=== PATIENT | female | born 1955 | race Caucasian/White ===

== ENCOUNTER 2020-08-19 10:02 | Outpatient (REF) | payer MEDICARE, SELFPAY ==
--- NOTE | 2020-08-19 | PFT_ITS ---
FLOWS: FEV1 of 84% of predicted at 1.89 L. FVC 81% of predicted at 2.38 L. FEV1 to FVC ratio of 0.79. No bronchodilator response. LUNG VOLUMES: Total lung capacity 150% of predicted at 7.17 L. Residual volume predicted at 4.61 L. Slow vital capacity 92% of predicted at 2.55 L. Expiratory reserve volume 17% of predicted at 0.12 L. Diffusion capacity is normal. In comparison to pulmonary function test performed in May of 2016, FVC has increased by 0.52 L; FEV1 has increased by 0.35 L; total lung capacity has increased by 2.88 L; residual volume has increased by 2.39 L; slow vital capacity has increased by 0.24 L; expiratory reserve volume has been without significant changes; diffusion capacity has decreased by 1.06 mL/minute per mmHg. IMPRESSION: No obstructive or restrictive ventilatory defect. No bronchodilator response. Increased total lung capacity suggests hyperinflation. Increased residual volume suggests air trapping. Decreased expiratory reserve volume suggests extrathoracic restriction likely secondary to abdominal obesity. MD DEANNE Mane/MODL / [id number]
--- NOTE | 2020-08-19 11:20 | XR_ITS ---
EXAMINATION: XR CHEST CLINICAL INFORMATION: Dyspnea on exertion. COMPARISON: None TECHNIQUE: 2 views of the chest were obtained. FINDINGS: The lungs are expanded with slight increase bilateral vascular markings. No acute consolidation or pleural effusion seen. The heart size and pulmonary vascularity is normal. No gross bony abnormality. XR/XR chest 2V IMPRESSION: Increased pulmonary vascularity suspicious for early vascular congestion.
== END 2020-08-19 10:03 | disposition home or self-care (01) ==
LOC: HO.RESP 10:02
PROVIDERS: PCP Internal Medicine; Visit Provider Internal Medicine
DX: Z01.818 Encounter for other preprocedural examination (principal); J44.9 Chronic obstructive pulmonary disease, unspecified; R06.00 Dyspnea, unspecified
CPT/HCPCS: 71046; 94060; 94727; 94729

== ENCOUNTER → 2020-09-01 14:03 | Outpatient (REF) | payer MEDICARE, SELFPAY ==
--- NOTE | 2020-09-01 14:00 | CA_ITS ---
Transthoracic Echocardiogram Patient (Last, First, Middle): Irasema Shook A Gender: Female Date of : 1955 Age: 65 Procedure Date: 09/01/2020 Procedure Type: Transthoracic Echocardiogram Location: OP Height: 157.48 cm Weight: 133.81 kg BSA: 2.25 m2 Heart Rate: bpm BP: 145 / 80 mmHg Editorial Cartoonist: Referring MD: Donald Licea MD Symptoms: DYSPNEA ON EXERTION R06.00 Study Quality: Fair ECG Rhythm: Sinus Conclusions: - The left ventricular systolic function is normal. The visually estimated ejection fraction is between 65-70%. - There is mild calcification of the aortic valve. - No obvious valvular pathology seen on this study. Findings Procedure Information Contrast agent, definity, is being given per protocol without apparent complications. Left Ventricle Normal left ventricular cavity size. There is normal left ventricular wall thickness. The left ventricular systolic function is normal. The visually estimated ejection fraction is between 65-70%. There is no evidence of regional wall motion abnormalities. Diastolic function is normal for age. Right Ventricle Normal right ventricular cavity size and systolic function. Atria The left atrium is normal in size. The right atrium is normal in size. Aortic Valve There is a normal trileaflet aortic valve. There is mild calcification of the aortic valve. There is no aortic valve stenosis. There is no aortic valve regurgitation. Mitral Valve The mitral valve appears normal. There is trace mitral valve regurgitation. There is no mitral valve stenosis. Pulmonic Valve The pulmonic valve was not well visualized. Tricuspid Valve Normal tricuspid valve structure. There is trace tricuspid valve regurgitation. The pulmonary artery systolic pressure is normal. Great Vessels The aortic annulus, sinuses of valsalva, and asc aorta are normal in size. Venous The inferior vena cava is normal in size and collapses greater than 50% with inspiration. Pericardium/Pleural There is no evidence of pericardial effusion. Prior Study Comparison No prior study available for comparison. Recommendations, Care & Conclusions No obvious valvular pathology seen on this study. Measurements 2D Linear Measurements RVIDd: 2.41 RVIDd Index: 1.07 IVSd: 1.07 0.6-0.9/0.6-1.0 cm LVIDd: 4.77 3.9-5.3/4.2-5.9 cm LVIDd Index: 2.12 2.4-3.2/2.2-3.1 cm/m2 LVIDs: 3.33 2.0-3.6 cm LVPWd: 1.28 0.7-1.1 cm Ao Root: 2.80 2.1-3.5 cm LA Diam: 3.70 2.7-3.8/3.0-4.0 cm LAIDs Index: 1.64 1.5-2.3 cm/m2 LV Mass: 262.51 67-162/88-224 g LV Mass Index: 116.67 43-95/49-115 g/m2 LVOT Diam: 4.40 3.0+(-)1.3 cm 2D Systolic Function EF 4C: 81.20 >55% EF 2C: 68.90 >55% EF BiP: 75.90 >55% Mitral Valve MV Pk E: 0.80 MV PK A: 0.81 MV Decel Time: 109.00 E/A: 1.00 E'Lateral: 10.30 E'Medial: 7.18 E/E' Med: 11.20 E/E' Lat: 7.80 PHT: 32.00 MVA PHT: 6.88 Decel Sequoyah: 7.35 Aortic Valve AoV Pk Moises: 1.60 AoV Mn Moises: 1.15 AoV VTI: 0.23 AoV Pk Grad: 10.00 Aov Mn Grad: 6.00 ALECIA Cont.VTI: 17.73 LVOT LVOT Pk Moises: 1.49 LVOT Mn Moises: 1.02 LVOT VTI: 0.27 LVOT Pk Grad: 9.00 LVOT Mn Grad: 5.00 LVOT Diam: 4.40 LVOT Area: 15.20 Diastolic Function MV Pk E: 0.80 MV Pk A: 0.81 E/A: 1.00 E'Medial: 7.18 E/E' Med: 11.20 E' Laterial: 10.30 E/E' Lat: 7.80 Tricuspid Valve RA Press: 3.00 Great Vessels Aorta Ao Root-2D: 2.80 2.0-3.7 cm Ao Asc: 3.00 2.1-3.4 cm Updated in Other Vendor System with Status of Final Ezra Gao MD electronically signed on 09/04/2020 10:59:15 AM with status of Final
== END ==
LOC: HO.CARD 14:03
PROVIDERS: Visit Provider Internal Medicine
DX: Z01.810 Encounter for preprocedural cardiovascular examination (principal); R06.00 Dyspnea, unspecified
CPT/HCPCS: 93306; Q9957

== ENCOUNTER 2020-10-19 13:09 | Outpatient (REF) | payer MEDICARE, SELFPAY ==
--- NOTE | ~2020-10-19 | CT_ITS ---
EXAMINATION: CT CHEST WITHOUT CONTRAST CLINICAL INFORMATION: Interstitial lung disease. COMPARISON: Chest x-ray of 08/19/2020 and 11/13/2017. TECHNIQUE: Multidetector volumetric CT imaging of the chest was done. Axial MIP volume rendering provided. Sagittal and coronal reformatted images were obtained. This CT examination was performed using dose optimization techniques as appropriate, variously including the following: *Automated exposure control *Adjustment of mA and/or kV according to patient size (this includes techniques or standardized protocols for targeted exams where dose is matched to indication/reason for exam; i.e. extremities or head) *Use of iterative reconstruction technique DLP: 328 mGy-cm. FINDINGS: LUNGS: Central airways are patent. There is bronchial wall thickening seen within the right upper lobe, left upper lobe, and lingula. There is interstitial fibrosis noted in these locations with some reticulation and cystic formation. No significant disease is seen within the lower lobes. There are some bilateral sub-4 mm nodules present. There is some minor ground-glass disease seen within the region of the cystic change. No definite solid component is present. Discoid scarring is seen within the right middle lobe and lingula. No definite calcified lesion is identified. No significant air trapping on high-resolution expiratory images identified. MEDIASTINUM: Heart normal size. Coronary artery calcification present. No significant pericardial effusion. No thoracic aortic aneurysm. Nonocclusive calcified plaque seen within the aortic arch. There is anterior mediastinal triangular density present without convex margins, likely representing residual thymus that has not completely undergone fatty involution. No mediastinal or hilar lymphadenopathy. PLEURA: There is no pleural effusion. No pleural mass or thickening. AXILLA: No lymphadenopathy. UPPER ABDOMEN: Status post cholecystectomy. No adrenal gland mass. OSSEOUS STRUCTURES: No suspicious destructive bony lesions. CT/CT chest wo con IMPRESSION: Upper lobe predominant bronchial wall thickening with some degree of interstitial fibrosis with cystic formation without calcified nodules or calcified lymph nodes. Old granulomatous disease such as tuberculosis would seem less likely without calcified lymph nodes residual granuloma. Inferior mucociliary clearance such as cystic fibrosis can have this appearance but would be atypical in patient of this age. In healed gas is slightly smoker inhalation could have this appearance. Silicosis or pneumoconiosis of other etiologies have an upper lobe predominance; however, there are usually nodular densities present. Hypersensitivity pneumonitis could have this appearance. Chronic eosinophilic pneumonia would tend to have a more peripheral pattern. Pulmonary findings of ankylosing spondylitis could also have this appearance.
== END 2020-10-19 13:10 | disposition home or self-care (01) ==
LOC: HO.CT 13:09
PROVIDERS: PCP Internal Medicine; Visit Provider Internal Medicine
DX: J84.9 Interstitial pulmonary disease, unspecified (principal)
CPT/HCPCS: 71250

== ENCOUNTER 2022-12-05 06:36 | Day surgery (SDC) | payer MEDICARE, SELFPAY ==
[2022-12-05 06:54] VITALS: BMI 54.8
[2022-12-05 06:58] VITALS: BP 131/72; PULSE 94; RESP 20; TEMP 36.4; O2SAT 95
[2022-12-05] MEDS: Lactated Ringers 1,000 ML 50 ML IVCONT (07:25)
[2022-12-05] MEDS: Albuterol Sulfate (0.083%) 2.5 MG/3 ML VIAL.NEB INHALE (07:33)
[2022-12-05 07:34] VITALS: PULSE 86; RESP 17; O2SAT 96
--- NOTE | 2022-12-05 08:45 | HO.ANESPROP2 ---
[facility] Past Medical History Medical History (Updated 12/05/22 @ 06:49 by Jessica Hardy RN) Back pain Chronic hepatitis C COPD (chronic obstructive pulmonary disease) Emphysema lung Endometrial ca Fractured coccyx Gallstone HTN (hypertension) Rectal fissure Family History Family history of problems with anesthesia: No Surgical History Surgical History (Updated 12/04/22 @ 13:30 by Meg Kiser RN) H/O colonoscopy Hx of cholecystectomy S/P OTILIO (total abdominal hysterectomy) History of Problems with Anesthesia: No Social History Social History Patient Tobacco Use Status: Current everyday Tobacco user Tobacco use type: Cigarette Cigarette Packs Per Day: 1 Cigarettes Per Day: 20.0 Use of substances other than those prescribed or required for medical reasons: No Are you DNR?: No Advance Directives: No Advance Directives Information Provided: Yes Recently lost weight without trying: No Nutrition Risks: No Nutritional Risk Meds Allergies Allergy/AdvReac Type Severity Reaction Status Date / Time nabumetone [From RELAFEN] AdvReac Severe LETHARGY Verified 12/05/22 06:56 naproxen [From ANAPROX] AdvReac Severe GI PAIN Verified 12/05/22 06:56 venlafaxine [From EFFEXOR] AdvReac Severe LETHARGY Verified 12/05/22 06:56 Active Medications: Current Medications Lactated Ringer's (Lr) 1,000 mls @ 50 mls/hr IVCONT .Q20H CHELSEY Last Admin: 12/05/22 07:25 Dose: 50 mls/hr Sodium Biphosphate/Sodium Phosphate (Sodium Phosphate,Johnson-Dibasic 133 Ml Enema) 133 ml [place] ONCE PRN PRN Reason: Poor Colonoscopy Prep Results Home Medications Medication Instructions Recorded Confirmed Last Taken Type albuterol sulfate 90 mcg/actuation 2 puff inhalation Q4H PRN SOB 12/04/22 12/04/22 Unknown History aerosol inhaler cholestyramine (with sugar) 4 gram ea PO QD-BID 12/04/22 Unknown History oral powder fentanyl 12 mcg/hr transdermal 1 patch topical Q3D 12/04/22 12/04/22 12/03/22 History patch ketoconazole 2 % topical cream appl topical DAILY 12/04/22 Unknown History lisinopril 10 1 tab PO DAILY 12/04/22 12/04/22 12/05/22 History mg-hydrochlorothiazide 12.5 mg tablet oxycodone 15 mg tablet 15 mg PO Q4H PRN pain 12/04/22 12/04/22 12/05/22 History Exam Exam Date and Time: December 05, 2022 0845 Height,Weight and Vital Signs: Height 5 ft 1 in Weight 131.542 kg Last Vital Signs Temp 97.6 F 12/05/22 06:58 Pulse 86 12/05/22 07:34 Resp 17 12/05/22 07:34 BP 131/72 12/05/22 06:58 Pulse Ox 95 12/05/22 06:58 O2 Del Method Room Air 12/05/22 06:58 Airway Mallampati Class: II TM Dist: >3cm Neck ROM: Full Denture: Upper Partial: Lower Heart: rr Lungs: cta Assessment and Plan Assessment Anesthesia Assessment: Anesthesia Plan Discussed and Chart Reviewed Final Anesthetic Review Family History of Problems with Anesthesia: No History of Problems with Anesthesia: No NPO: Yes ASA Class: III Final Preanesthetic Review: No Changes in Pt Med Stat, Meds/Allgs Chart Reviewed and Consent Obtained/Reviewed Patient Risk: Intermediate Procedure Risk: Low Anesthetic Plan Anesthetic Plan: MAC: Disposition: Standard PACU
[2022-12-05 08:54] VITALS: BP 103/61; PULSE 80; RESP 18; TEMP 36.5; O2SAT 94
--- NOTE | 2022-12-05 08:55 | PM.OP ---
Brief Operative Note Date of Service: 12/05/22 Pre-op diagnosis: Screening Post-op diagnosis: other (Colon polyps) Procedure: Colonoscopy to the cecum with biopsies, bx/removal of polyp, hot snare polypectomies, and placement of Resolution clips x 4 Surgeon: Chris Watson Anesthesia: MAC Was an Flaking Roll Operator used for this Procedure?: No Estimated blood loss (mL): 2.0 Pathology: other (A. Polyps at 50cm B. Ascending colon C. Cecal polyp D. Ascending colon polyps E. Transverse colon polyps F. Descending colon) Condition: stable Disposition: PACU
[2022-12-05 09:16] VITALS: BP 130/71; PULSE 78; RESP 16; TEMP 36.1; O2SAT 96
--- NOTE | 2022-12-05 17:45 | OP_ITS ---
DATE OF SERVICE: 12/05/2022 SURGEON: Chris Watson MD INDICATIONS: The patient presents for evaluation of colorectal cancer screening and personal history of tubular adenomas of the colon. Full consent has been obtained from her for this, including risks of bleeding and perforation. PREOPERATIVE DIAGNOSIS: POSTOPERATIVE DIAGNOSIS: PROCEDURE PERFORMED: Colonoscopy to the cecum and terminal ileum with hot snare polypectomy, biopsy and removal of polyp, biopsies, and placement of 4 Resolution clips on the transverse colon polypectomy sites. ESTIMATED BLOOD LOSS: COMPLICATIONS: ANESTHESIA: Monitored anesthesia care. ASSISTANTS: SPECIMENS: PREOPERATIVE DIAGNOSES: Colorectal cancer screening and personal history of tubular adenomas of the colon. POSTOPERATIVE DIAGNOSES: Colorectal cancer screening and personal history of tubular adenomas of the colon, colon polyps, diverticulosis, rule out microscopic colitis, internal hemorrhoids. DESCRIPTION OF PROCEDURE: The patient was placed in the left lateral decubitus position. The digital rectal exam revealed no abnormalities. The [place] video pediatric colonoscope was entered into the rectum and advanced easily to the cecum. Once in the cecum, I did identify a normal appearing cecal pouch with appendiceal orifice and a normal-appearing ileocecal valve. The terminal ileum was cannulated and appeared normal. The scope was withdrawn back in the colon. The entire cecum was well-visualized. In the cecum, there was an approximately 3 mm polyp, which was biopsied and completely removed with the cold biopsy forceps. The scope was slowly withdrawn assessing all mucosal surfaces carefully. Preparation was excellent. In the ascending colon, transverse colon, and at 50 cm, there were multiple polyps ranging in sizes between 6 and 12 mm. The largest polyp was seen in the transverse colon. These were all removed by hot snare polypectomy and recovered by suction. All of the polypectomy sites appeared clean, without any sign of residual polyp nor bleeding. I did place 2 Resolution clips on both transverse colon polypectomy sites with good deployment and good hemostasis. I did not visualize any other polyps, colitis, or angiodysplasia. I did obtain random biopsies in the ascending and descending colon to rule out microscopic colitis. There was a moderate amount of sigmoid diverticulosis. In the rectum, the scope was retroflexed visualizing internal hemorrhoids, but no other pathology. The rectal mucosa appeared normal. Scope was straightened out and withdrawn from the patient. She tolerated the procedure well and was returned to the recovery area in stable condition. IMPRESSION: 1. Colon polyps. 2. Diverticulosis. 3. Internal hemorrhoids. PLAN: The results of the pathology will be checked. I have recommended a repeat colonoscopy in 3 years for further screening and surveillance. She was advised to see me in 1 year for followup visit in regard to the previous history of hepatitis C. She was advised not to use any aspirin or NSAIDs for 1 week. She had been given a prescription for cholestyramine in regard to her diarrhea, which she does report helped her, but she really does not like the taste, and therefore has not been using it regularly. I did advise her use it as needed at least. MD JESÚS Menon/CINDY / [id number] MTDD
== END 2022-12-05 09:50 | disposition home or self-care (01) ==
PROVIDERS: PCP Internal Medicine; Visit Provider Internal Medicine
PROC: 0DJD8ZZ Inspection of Lower Intestinal Tract, Via Natural or Artificial Opening Endoscopic (ICD-10-PCS; CPT 45378; principal; 2022-12-05 07:30)
DX: Z12.11 Encounter for screening for malignant neoplasm of colon (principal); Z86.010 Personal history of colon polyps; D12.0 Benign neoplasm of cecum; D12.2 Benign neoplasm of ascending colon; D12.3 Benign neoplasm of transverse colon; D12.5 Benign neoplasm of sigmoid colon; K57.30 Diverticulosis of large intestine without perforation or abscess without bleeding; K64.8 Other hemorrhoids; K90.89 Other intestinal malabsorption; B18.2 Chronic viral hepatitis C; I10 Essential (primary) hypertension; Z85.42 Personal history of malignant neoplasm of other parts of uterus; Z79.899 Other long term (current) drug therapy; Z88.8 Allergy status to other drugs, medicaments and biological substances; F17.210 Nicotine dependence, cigarettes, uncomplicated; Z90.49 Acquired absence of other specified parts of digestive tract
CPT/HCPCS: 45385; 45380; 88305; 94640